=== PATIENT | female | born 1995 ===

== ENCOUNTER 2018-08-25 17:50 | Emergency (ER) | payer SELFPAY ==
[2018-08-25] MEDS ORDERED: NORMAL SALINE 1,000 ML IV.SOLN IV ONE (18:06)
[2018-09-12 12:54] LABS: eGFR (Non-African) > 60
[2018-09-12 12:55] LABS: BASOPHILS % 0.6 % (0.0-1.5); NEUTROPHILS # 5.4 # k/uL (1.4-7.7)
[2018-09-12 13:05] LABS: APPEARANCE,URINE CLEAR (CLEAR); COLOR,URINE YELLOW (YELLOW); OCCULT BLOOD,URINE NEGATIVE (NEGATIVE); UROBILINOGEN URINE 0.2 Eu (0.2-1.0)
== END 2018-08-25 19:02 ==
LOC: ED 17:50
DX: E86.0 Dehydration (principal)
CPT/HCPCS: 36415; 80053; 81002; 85025; 96374; 96375; 99283; 99284; J7030; S1016

== ENCOUNTER 2018-12-26 15:37 | Emergency (ER) | payer OTHER ==
[2019-01-06 08:23] LABS: APPEARANCE,URINE CLEAR (CLEAR); COLOR,URINE YELLOW (YELLOW); OCCULT BLOOD,URINE 2+ (NEGATIVE); PH URINE 6.5 (5.0 - 8.0); URINE HCG NEGATIVE (NEGATIVE); UROBILINOGEN URINE 0.2 Eu (0.2-1.0)
[2019-02-25 16:30] VITALS: BP 141/74
== END 2018-12-26 16:13 ==
LOC: ED 15:37
DX: N92.6 Irregular menstruation, unspecified (principal)
CPT/HCPCS: 81002; 81025; 99281; 99282

== ENCOUNTER 2019-01-25 17:09 | Emergency (ER) | payer OTHER ==
--- NOTE | 2019-01-25 17:19 | ED Physician Documentation ---
Dizziness - HISTORIAN Historian: patient - HPI Stated Complaint: she started her period yesterday and she is cramping Chief Complaint: Female Urogenital Problems Duration: constant Severity: moderate Worsened By: nothing Further Comments: yes (She has PCOS and she notes she started her period less than 24 hours ago - usually her period starts off heavy with cramps and this time she started light with cramps. She has not taken any OTC meds for pain. She has no other symptoms . She has had her current tampon in for 2 hours.) - ROS CONST: none - PAST HX Past History: none Immunizations: UTD Allergies/Adverse Reactions: Allergies Allergy/AdvReac Type Severity Reaction Status Date / Time haloperidol [From Haldol] Allergy Verified 01/25/19 17:38 Home Medications: Ambulatory Orders Medication Instructions Recorded Methocarbamol [Robaxin-750] 750 mg PO BID PRN 01/25/19 Pregabalin 50 mg PO TID 01/25/19 - SOCIAL HX Smoking History: non-smoker Alcohol Use: none Drug Use: none - FAMILY HX Family History: none - REVIEWED ASSESSMENTS Nursing Assessment Reviewed: Yes Vitals Reviewed: Yes Progress - Progress Progress: 1812: cramping pain is improved per patient report DG Dizziness Physical Exam - Physical Exam General Appearance: no distress EENT: eye inspection normal, no signs of dehydration Neck: normal inspection Respiratory: no respiratory distress, breath sounds nml, chest non-tender CVS: reg rate & rhythm, heart sounds normal Abdomen: soft, normal bowel sounds, no distension, tenderness (lower bilateral lower abdomen (pelvic pain that is cramping like) ) Skin: warm/dry, normal color Neuro: nml orientation Extremities: non-tender Cranial: nml as tested Cerebellar: nml as tested Sensorimotor: motor nml Discharge Clincal Impression: Menstrual cramps Referrals: Primary Doctor,No [Primary Care Provider] - 2 Days Comments: 1. Continue OTC meds as needed for pain as directed 2. Increase fluids 3. Warm packs as needed for comfort 4. Follow up with PCP in 2 days 5. Return to ER for any increased concerns Condition: Stable Disposition: 01 HOME, SELF-CARE Decision to Admit: NO Date of Decison to Admit: 01/25/19 Decision Time: 18:15
[2019-01-25 17:39] VITALS: BP 142/83
[2019-01-25] MEDS: KETOROLAC TROMETHAMINE 60 MG/2 ML VIAL IM ONE (17:52)
[2019-01-25 18:35] LABS: APPEARANCE,URINE CLEAR (CLEAR); COLOR,URINE RED (YELLOW); OCCULT BLOOD,URINE 3+ (NEGATIVE); PH URINE 5.5 (5.0 - 8.0); URINE HCG NEGATIVE (NEGATIVE); UROBILINOGEN URINE 0.2 Eu (0.2-1.0)
== END 2019-01-25 18:20 | disposition home or self-care (01) ==
LOC: ED 17:09
DX: R25.2 Cramp and spasm (principal)
CPT/HCPCS: 81002; 81025; 96372; 99282; 99284; J1885

== ENCOUNTER 2019-02-26 08:56 | Outpatient (CLI) | payer OTHER ==
[2019-02-25 16:30] VITALS: BP 141/74
== END 2019-02-26 09:01 ==
LOC: LAB 08:56
PROVIDERS: ATTEND Obstetrics & Gynecology
DX: Z32.01 Encounter for pregnancy test, result positive (principal)
CPT/HCPCS: 84702

== ENCOUNTER 2019-03-07 18:20 | Emergency (ER) | payer OTHER ==
[2019-03-07 18:47] VITALS: BP 156/78
--- NOTE | 2019-03-07 18:57 | ED Physician Documentation ---
Female Urogenital Problems - HPI Stated Complaint: abd pain Chief Complaint: Female Urogenital Problems Additional Information: 23 year old female presents with c/o lower abdominal cramping since discovering she was . She states normally cramps 5-7 seconds approx 3 times a day. Today she had approximately 5 cramps and noticed an increase in yellow vaginal discharge. Patient states that this is her first and she is just not sure what to expect and what is normal. Spent long period of time explaining to patient about ; she is very excited and concerned. She just wants to make sure everything is ok. Onset: days ago Severity: mild Location of Pain: pelvic pain - Vaginal Bleeding LNMP (Last Known Menstrual Period): 01/24/19 : 1 Para: 0 : 0 Where was Test Done: home Care: Yes ([facility]) Sexual History: active Contraceptive: none - Associated Symptoms Urinary Symptoms: none Discharge: yellowish discharge - ROS CONST: none GI/: denies: nausea, vomiting CVS/RESP: none EYES/ENT: none NEURO/PSYCH: none MS/SKIN/LYMPH: none - PAST HX Past History: other (depression, fibromyalgia) Other History: none Surgeries/Procedures: none Immunizations: UTD Allergies/Adverse Reactions: Allergies Allergy/AdvReac Type Severity Reaction Status Date / Time haloperidol [From Haldol] Allergy Verified 03/07/19 18:47 Home Medications: Ambulatory Orders Medication Instructions Recorded NK 02/25/19 - SOCIAL HX Smoking History: less than 1 pack/day Alcohol Use: none Drug Use: none - FAMILY HX Family History: none - VITAL SIGNS Vital Signs: Vital Signs Temp Pulse Resp BP Pulse Ox 97.6 F 109 H 16 156/78 97 03/07/19 18:50 03/07/19 18:50 03/07/19 18:50 03/07/19 18:50 03/07/19 18:50 - REVIEWED ASSESSMENTS Nursing Assessment Reviewed: Yes Vitals Reviewed: Yes Female Urogenital Problems - EXAM General Appearance: no acute distress, alert EENT: eye inspection normal, ENT inspection normal, pharynx normal, no signs of dehydration, TITUS Neck: nml inspection Respiratory: no resp. distress, breath sounds nml CVS: heart sounds normal Skin: color nml, no rash, warm,dry Extremities: non-tender, normal range of motion Neuro: oriented X3, CN's nml as tested, motor nml, sensation nml, mood/affect nml, cognition normal Discharge Clincal Impression: Referrals: Nhan García MD [Primary Care Provider] - 2 Days Additional Instructions: Increase water intake > 64 oz daily Increase protein (Premier protein drinks) Continue to try to quit smoking Keep follow up appointment with [employer] Condition: Good Disposition: 01 HOME, SELF-CARE Decision to Admit: NO Decision Time: 19:00
== END 2019-03-07 18:50 | disposition home or self-care (01) ==
LOC: ED 18:20
DX: Z32.00 Encounter for pregnancy test, result unknown (principal)
CPT/HCPCS: 99281; 99282